=== PATIENT | female | born 1995 | race African-American/Black ===

== ENCOUNTER 2023-09-27 11:56 | Emergency (ER) | payer MEDICAID ==
[~2023-09-27] VITALS: Ht 165.1 cm; Wt 106.0 kg
[2023-09-27 14:16] VITALS: BP 145/76; PULSE 75; RESP 16; TEMP 98.8; O2SAT 100
[2023-09-27] MEDS ORDERED: ACET500T58 PO (14:28)
[2023-09-27] MEDS ORDERED: MELO7.5T7 PO (14:28)
== END 2023-09-27 14:34 | disposition home or self-care (01) ==
LOC: ER 11:56
DX: S83.92XA Sprain of unspecified site of left knee, initial encounter (principal); X58.XXXA Exposure to other specified factors, initial encounter; Y93.68 Activity, volleyball (beach) (court); Y92.89 Other specified places as the place of occurrence of the external cause; Y99.8 Other external cause status
CPT/HCPCS: 29505; 73562

== ENCOUNTER 2023-10-04 02:30 | Emergency (ER) | payer MEDICAID ==
[~2023-10-04] VITALS: Ht 165.1 cm; Wt 104.0 kg
[~2023-10-04 02:30] MED LIST: ACET500T58 PO; MELO7.5T7 PO
[2023-10-04 04:35] LABS: Urine Amorphous Crystal FEW /hpf (None Seen); Urine Bacteria FEW /hpf (None Seen); Urine Blood Negative /uL (Negative); Urine Clarity Turbid (Clear); Urine Color Yellow (Yellow); Urine Mucus FEW (None Seen); Urine Protein, UAD TRACE (Negative); Urine Specific Gravity 1.027 (1.001-1.035); Urine Urobilinogen Normal (Negative); Urine WBC 7 /hpf (0 - 5); Urine pH 5.5 (5.0-9.0)
[2023-10-04] MEDS: SODIUM CHLORIDE 0.9% 1,000 ML IV ONE ×2 (07:01→08:21)
[2023-10-04 07:07] LABS: Basophils # (auto) 0.1 10 ^3/uL (0-0.2); Basophils % (auto) 0.7 % (0.0-2.0); Eosinophils # (auto) 0.1 10 ^3/uL (0-0.8); Eosinophils % (auto) 0.6 % (0.0-7.0); Hematocrit 46.1 % (36.0-46.0); Hemoglobin 15.5 g/dL (12.2-16.2); Lymphocytes % (auto) 19.6 % (10.0-50.0); Mean Corpuscular Hemoglobin 28.7 pg (28.0-32.0); Mean Corpuscular Hgb Conc. 33.7 g/dL (32.0-36.0); Mean Corpuscular Volume 85.4 fL (80.0-100.0); Monocytes # (auto) 0.7 10 ^3/uL (0-1.3); Monocytes % (auto) 6.8 % (0.0-12.0); Neutrophils # (auto) 7.3 10 ^3/uL (1.6-8.6); Neutrophils % (auto) 72.3 % (37.0-80.0); Nucleated Red Blood Cells % 0.2 %; Red Blood Cells 5.41 10^6/uL (4.0-5.20); Red Cell Distribution Width 13.6 % (11.8-14.3); White Blood Cell 10.1 10^3/uL (4.4-10.8)
[2023-10-04 07:16] LABS: Alanine Aminotransferase 12 U/L (7-40); Alkaline Phosphatase 73 U/L (46-116); Anion Gap 11 (5-15); Aspartate Aminotransferase 16 U/L (13-40); BUN/Creatinine Ratio 12.6 (10.0-20.0); Bilirubin, Total 0.7 mg/dL (0.2-1.0); Blood Urea Nitrogen 11 mg/dL (9-23); Calcium 10.5 mg/dL (8.7-10.4); Carbon Dioxide 23 mmol/L (20-30); Chloride 105 mmol/L (98-107); Glucose 69 mg/dL (74-106); Sodium 139 mmol/L (136-145); Total Protein 8.4 g/dL (5.7-8.2)
[2023-10-04 07:57] VITALS: BP 124/79; PULSE 78; RESP 18; TEMP 98.4; O2SAT 100
[2023-10-04] MEDS: ONDANSETRON HCL 4 MG/2 ML VIAL IV ONE (08:18)
[2023-10-04] MEDS ORDERED: DICYCLOMINE HCL (10MG/ML) 2 ML AMPULE IM ONE (09:00)
[2023-10-04] MEDS ORDERED: ONDANSETRON HCL 4 MG/2 ML VIAL IV PRN (09:00)
[2023-10-04] MEDS ORDERED: SODIUM CHLORIDE 0.9% 1,000 ML IV SCH (09:00)
[2023-10-04] MEDS ORDERED: DOCUSATE SOD 100 MG CAP PO PRN (09:00)
[2023-10-04] MEDS ORDERED: METOCLOPRAMIDE HCL 5MG/ml INJ 2ml VIAL IV ONE (09:00)
[2023-10-04] MEDS ORDERED: MORPHINE SULFATE INJ 2 MG/ml SYRG IV PRN (09:00)
[2023-10-04 09:37] LABS: Amphetamine Screen, Urine Neg (NEGATIVE); Barbiturate Scree,Urine Neg (NEGATIVE); Benzodiazephine Screen, Urine Neg (NEGATIVE); Cannabinoid Screen, Urine Neg (NEGATIVE); Cocaine Screen, Urine Neg (NEGATIVE); Opiate Scree,Urine Neg (NEGATIVE); Phencyclidine Screen, Urine Neg (NEGATIVE)
[2023-10-04] MEDS ORDERED: DICYCLOMINE HCL 10 MG CAP PO SCH (12:00)
[2023-10-04] MEDS ORDERED: METOCLOPRAMIDE HCL 5MG/ml INJ 2ml VIAL IV SCH (14:00)
== END 2023-10-04 09:06 | disposition left against medical advice (07) ==
LOC: ER 02:30
DX: K52.9 Noninfective gastroenteritis and colitis, unspecified (principal); Z79.899 Other long term (current) drug therapy
CPT/HCPCS: 36415; 80053; 80307; 81001; 85025; 96361; 96374; 99283; J2405; J7030